=== PATIENT | male | born 1965 | race Caucasian/White ===

== ENCOUNTER 2017-05-07 08:30 | Emergency (ER) | payer OTHER ==
[~2017-05-07] VITALS: Ht 182.9 cm; Wt 117.5 kg
[2017-05-07 08:35] VITALS: Ht 182.9 cm; Wt 117.5 kg
[2017-05-07] MEDS ORDERED: LIDOCAINE 2% VISC 15 ML CUP TOP ONE (09:30)
[2017-05-07] MEDS ORDERED: CEPH-443 PO (09:54)
[2017-05-07] MEDS ORDERED: HYDR-906 PO (09:54)
[2017-05-07] MEDS ORDERED: CEFTRIAXONE 1 GM INJ IM ONE (10:00)
--- NOTE | 2017-05-07 12:06 | ERD ---
ER Documentation Chief Complaint Date/Time DATE: 05/07/17 TIME: 11:54 Chief Complaint Complains of dental pain sent from for eval HPI 48-year-old male with dental pain is sent here by his dentist for abscess drainage. Patient stated that he had been okay for the past 7 days, was given clindamycin by the dentist, he is on day 7 clindamycin. Patient reports dental pain getting worse the last 2 3 days. She was given Tylenol with codeine by his dentist, he only took 1 dose. He stopped because he did not like how it makes him feel. He is taking naproxen and tramadol for his arthritis, but states that had not helped with that he is dental pain. Denies fever or chills. Denies headache or neck pain. ROS All systems reviewed and are negative except as per history of present illness. Medications Home Meds Active Scripts Cephalexin* (Keflex*) 500 Mg Capsule, 500 MG PO QID for 7 Days, CAP Prov:KALEIGH DOE. BUCKLE COVERER 05/07/17 Hydrocodone/Acetaminophen ([place] 5-325 Tablet) 1 Each Tablet, 1 TAB PO Q6H Y for SEVERE PAIN LEVEL 7-10, #7 TAB Prov:KALEIGH DOE. BUCKLE COVERER 05/07/17 Allergies Allergies: Coded Allergies: Penicillins (Verified Allergy, Intermediate, 05/07/17) PMhx/Soc Medical and Surgical Hx: pt denies Medical Hx, pt denies Surgical Hx Physical Exam Vitals Vital Signs Date Time Temp Pulse Resp B/P Pulse Ox O2 Delivery O2 Flow Rate FiO2 05/07/17 08:35 97.7 80 20 134/94 98 Physical Exam General: Well-developed, well-nourished, conscious and coherent, in no distress Skin: Warm and dry without rash, good texture and turgor Head: Normocephalic without evidence of trauma Eyes: Sclera and conjunctivae normal; pupils equal, round, and reactive to light; extraocular movements are intact Nose/Face: To 3 cm sized induration noted on the right face, without fluctuance. Mouth/throat: Mucous membranes are moist. Posterior pharynx clear without erythema or exudates. Few teeth remaining, tenderness and slight fluctuance noted at the gumline lateral to the right upper incisor. Neck: Supple without meningismus or adenopathy. Carotids are equal. Trachea midline. No bruits or JVD Chest: Normal AP diameter. Good expansion without retractions. Nontender. Lungs are clear to auscultate bilaterally with good tidal volume Heart: Regular rate and rhythm. No murmur, rub, or gallops heard Extremities: Full range of motion. Good strength bilaterally. No clubbing, cyanosis, or edema. Peripheral pulses are intact. Sensation intact Neuro: Alert and oriented 4, GCS 15. Cranial nerves grossly intact. Motor and sensory exams nonfocal. Moves all extremities. Speech clear. Gait normal Results 24 hrs Current Medications Medications (Trade) Dose Ordered Sig/Paul Route PRN Reason Start Time Stop Time Status Last Admin Dose Admin Lidocaine (Xylocaine (Viscous)) 15 ml ONCE ONCE TOP 05/07/17 09:30 05/07/17 09:31 DC Ceftriaxone Sodium (Rocephin) 1 gm ONCE ONCE IM 05/07/17 10:00 05/07/17 10:01 DC 05/07/17 10:24 Procedures/MDM Procedure note: Incision and Drainage Verbal consent obtained for incision and drainage of patient's abscess. Viscous lidocaine applied topically on patient's oral mucosa.. After appropriate anesthesia, incision was made using 18-gauge needle. No purulent discharge was drained. Patient appears to have dental abscess with facial cellulitis. He has failed oral clindamycin. Patient stated that he had good luck with Keflex in the past. Rocephin 1 g IM given to the patient in the ED. Patient given prescription of Keflex for home, and advised to apply hot compresses. Patient advised to return to eating 2 days for recheck. I doubt sepsis, Ricardo's angina, sinusitis. Departure Diagnosis: Primary Impression: Dental abscess Condition: Stable Patient Instructions: Dental Abscess W/ Facial Cellulitis Referrals: COMMUNITY CLINICS YOU HAVE RECEIVED A MEDICAL SCREENING EXAM AND THE RESULTS INDICATE THAT YOU DO NOT HAVE A CONDITION THAT REQUIRES URGENT TREATMENT IN THE EMERGENCY DEPARTMENT. FURTHER EVALUATION AND TREATMENT OF YOUR CONDITION CAN WAIT UNTIL YOU ARE SEEN IN YOUR DOCTORS OFFICE WITHIN THE NEXT 1-2 DAYS. IT IS YOUR RESPONSIBILITY TO MAKE AN APPOINTMENT FOR FOLOW-UP CARE. IF YOU HAVE A PRIMARY DOCTOR --you should call your primary doctor and schedule an appointment IF YOU DO NOT HAVE A PRIMARY DOCTOR YOU CAN CALL OUR PHYSICIAN REFERRAL HOTLINE AT IF YOU CAN NOT AFFORD TO SEE A PHYSICIAN YOU CAN CHOSE FROM THE FOLLOWING [facility] [address] [facility] [address] [facility] [facility] [address] [facility] [address] [facility] [address] [facility] [address] [facility] [facility] ([facility] walk in clinic) Additional Instructions: Return to this facility in 2 DAYS for a follow-up exam.Return sooner if your condition worsens. Follow up with your dentist. KALEIGH DOE NP May 07, 2017 12:05
== END 2017-05-07 10:26 | disposition home or self-care (01) ==
LOC: FTE 08:30
DX: K04.7 Periapical abscess without sinus (principal); R40.2412 Glasgow coma scale score 13-15, at arrival to emergency department
CPT/HCPCS: 41800; J0696; Z7610; 96372

== ENCOUNTER 2017-05-09 07:49 | Emergency (ER) | payer OTHER ==
[~2017-05-09] VITALS: Ht 182.9 cm; Wt 117.5 kg
[~2017-05-09 07:49] MED LIST: CEPH-443 PO; HYDR-906 PO
[2017-05-09 07:50] VITALS: Ht 182.9 cm; Wt 117.5 kg
--- NOTE | 2017-05-09 08:28 | ERD ---
ER Documentation Chief Complaint Date/Time DATE: 05/09/17 TIME: 08:27 Chief Complaint recheck - dental pain HPI This 51-year-old male presents for recheck on a right dental abscess. He was seen here 2 days ago. An attempted incision and drainage was performed without much appreciable pus. He is taking Keflex and received an injection of Rocephin. He states that his pain and swelling is significant improved without fevers with no complaints of shortness of breath or difficulty swallowing. ROS All systems reviewed and are negative except as per history of present illness. Medications Home Meds Active Scripts Cephalexin* (Keflex*) 500 Mg Capsule, 500 MG PO QID for 7 Days, CAP Prov:KALEIGH DOE. ASSET CARD CLERK 05/07/17 Hydrocodone/Acetaminophen ([place] 5-325 Tablet) 1 Each Tablet, 1 TAB PO Q6H Y for SEVERE PAIN LEVEL 7-10, #7 TAB Prov:KALEIGH DOE. ASSET CARD CLERK 05/07/17 Allergies Allergies: Coded Allergies: Penicillins (Verified Allergy, Intermediate, 05/09/17) PMhx/Soc Medical and Surgical Hx: pt denies Medical Hx Hx Alcohol Use: No Hx Substance Use: No Hx Tobacco Use: No Physical Exam Vitals Vital Signs Date Time Temp Pulse Resp B/P Pulse Ox O2 Delivery O2 Flow Rate FiO2 05/09/17 07:50 98.9 84 19 132/84 97 Physical Exam Const: [] Alert, [id number], speak in complete sentences. Head: Atraumatic Eyes: Normal Conjunctiva ENT: Normal External Ears, Nose and Mouth.. Poor dentition. There is some minimal induration without erythema warmth or appreciable fluctuance in the right upper canine area and base of the gums. There is no appreciable abscess to be drained. There is no facial erythema or warmth. Airway is patent. Neck: Full range of motion..~ No meningismus. Resp: Clear to auscultation bilaterally Cardio: Regular rate and rhythm, no murmurs Abd: Soft, non tender, non distended. Normal bowel sounds Skin: No petechiae or rashes Back: No midline or flank tenderness Ext: No cyanosis, or edema Neur: Awake and alert Psych: Normal Mood and Affect Procedures/MDM Patient presents with a history of right upper dental abscess which is clinically improving. There is no current abscess to be drained appreciated. Patient was discharged home instructions to continue Keflex and dental follow- up. The patient was stable with no new complaints during the ER course. Clinically, there is no current evidence to suggest meningitis, sepsis, acute abdomen, pneumonia, acute coronary syndrome, pulmonary embolism, or any other emergent condition appearing to require further evaluation or hospitalization. The patient should certainly return for any new or worsening symptoms per the aftercare instructions. They should otherwise follow-up with her primary care doctor for reevaluation this week. Departure Diagnosis: Primary Impression: Dental abscess Condition: Stable Patient Instructions: Dental Abscess Additional Instructions: Abscess appears to be healing appropriately. See dentist for follow-up. Return otherwise for worsening swelling, fevers, new symptoms. ASHWINI SAGASTUME MD May 09, 2017 08:28
== END 2017-05-09 08:29 | disposition home or self-care (01) ==
LOC: FTE 07:49
DX: K04.7 Periapical abscess without sinus (principal)
CPT/HCPCS: 99282

== ENCOUNTER 2017-05-21 20:21 | Inpatient (IN) | payer OTHER ==
[~2017-05-21] VITALS: Ht 185.4 cm; Wt 116.5 kg
[2017-05-21] MEDS ORDERED: ALBUTEROL 0.083% (NEB) 2.5 MG/3 ML AMP HHN STA (21:28)
[2017-05-21] MEDS ORDERED: HYDROCODONE/APAP (5/325) TAB PO ONE (21:30)
[2017-05-21] MEDS ORDERED: IPRATROPIUM (NEB) 0.5 MG/2.5 ML AMP HHN ONE (21:30)
--- NOTE | 2017-05-21 22:06 | RADRPT ---
PROCEDURE: XR Chest. CLINICAL INDICATION: Shortness of breath. TECHNIQUE: Single frontal view. COMPARISON: None. FINDINGS: There is air space disease in the left mid and lower lung zones consistent with pneumonia. The lung s are otherwise clear. The heart size is normal. There is no pleural effusion. There is no pneumothorax. IMPRESSION: 1. Left mid and lower lung zone pneumonia. 2. Otherwise normal chest x-ray. RPTAT: QQ .Oscar Nelson MD, MD Date Time Electronically viewed and signed by .Oscar Nelson MD, MD on 05/21/2017 22:06 .R/
[2017-05-21] MEDS ORDERED: CEFTRIAXONE 2 GM/50 ML (PMX) 50 ML IVPB ONE (22:30)
--- NOTE | 2017-05-21 22:51 | ERA ---
ER Documentation Chief Complaint Date/Time DATE: 05/21/17 TIME: 22:50 Chief Complaint cough HPI The patient is a 51-year-old male, presenting to the ER because of acute shortness of breath, dizziness, cough, pleuritic chest pain, dyspnea after he had right eye cataract surgery about 10 AM today. He was well prior to surgery. He complains of vague abdominal discomfort, denies nausea, vomiting, dysuria, diarrhea, constipation. He does not smoke nor drink Past medical history: Gastritis, osteoarthritis Past surgical history: Right shoulder and right elbow surgery ROS All systems reviewed and are negative except as per history of present illness. Medications Home Meds Active Scripts Cephalexin* (Keflex*) 500 Mg Capsule, 500 MG PO QID for 7 Days, CAP Prov:KALEIGH DOE. ICU REGISTERED NURSE 05/07/17 Hydrocodone/Acetaminophen ([place] 5-325 Tablet) 1 Each Tablet, 1 TAB PO Q6H Y for SEVERE PAIN LEVEL 7-10, #7 TAB Prov:KALEIGH DOE. ICU REGISTERED NURSE 05/07/17 Allergies Allergies: Coded Allergies: Penicillins (Verified Allergy, Intermediate, 05/09/17) PMhx/Soc History of Surgery: Yes (eye sx) Hx Miscellaneous Medical Probl: Yes (arthritis) Hx Alcohol Use: No Hx Substance Use: No Hx Tobacco Use: No Physical Exam Vitals Vital Signs Date Time Temp Pulse Resp B/P Pulse Ox O2 Delivery O2 Flow Rate FiO2 05/22/17 03:33 76 16 120/70 96 Room Air 05/21/17 22:11 79 20 92 21 05/21/17 20:34 99.4 93 18 128/76 91 Physical Exam Const: No acute distress. Head: Atraumatic. Eyes: Normal Conjunctiva. Right eye is covered with dressing ENT: Normal External Ears, Nose and Mouth. Neck: Full range of motion. No meningismus. Resp: Mild bilateral expiratory wheezes Cardio: Regular rate and rhythm. Abd: Soft, non distended, normal bowel sounds, non tender. Skin: No petechiae or rashes. Back: No midline or flank tenderness. Ext: No cyanosis, or edema. Neur: Awake and alert. No focal deficit Psych: Normal Mood and Affect. Result Diagram: 05/21/17 3005 05/21/17 2330 Results 24 hrs Laboratory Tests Test 05/21/17 23:30 White Blood Count 15.510^3/ul Red Blood Count 4.6710^6/ul Hemoglobin 13.7g/dl Hematocrit 41.6% Mean Corpuscular Volume 89.1fl Mean Corpuscular Hemoglobin 29.3pg Mean Corpuscular Hemoglobin Concent 32.9g/dl Red Cell Distribution Width 13.2% Platelet Count 22456^3/UL Mean Platelet Volume 11.2fl Neutrophils % 84.5% Lymphocytes % 9.8% Monocytes % 4.7% Eosinophils % 0.2% Basophils % 0.3% Nucleated Red Blood Cells % 0.0/100WBC Neutrophils # 13.110^3/ul Lymphocytes # 1.510^3/ul Monocytes # 0.710^3/ul Eosinophils # 0.010^3/ul Basophils # 0.110^3/ul Nucleated Red Blood Cells # 0.010^3/ul Prothrombin Time 13.2Sec Prothrombin Time Ratio 1.0 INR International Normalized Ratio 1.00 Activated Partial Thromboplast Time 20.0Sec Sodium Level 134mmol/L Potassium Level 3.5mmol/L Chloride Level 100mmol/L Carbon Dioxide Level 29mmol/L Anion Gap 9 Blood Urea Nitrogen 13mg/dl Creatinine 0.95mg/dl Glucose Level 117mg/dl Lactic Acid Level 1.5mmol/L Calcium Level 9.1mg/dl Total Bilirubin 0.6mg/dl Direct Bilirubin 0.00mg/dl Indirect Bilirubin 0.6mg/dl Aspartate Amino Transf (AST/SGOT) 25IU/L Alanine Aminotransferase (ALT/SGPT) 25IU/L Alkaline Phosphatase 105IU/L Troponin I < 0.012ng/ml Total Protein 7.5g/dl Albumin 4.2g/dl Globulin 3.30g/dl Albumin/Globulin Ratio 1.27 Lipase 61U/L Current Medications Medications (Trade) Dose Ordered Sig/Paul Route PRN Reason Start Time Stop Time Status Last Admin Dose Admin Acetaminophen/ Hydrocodone Bitart ([place]oster (5/325)) 1 tab ONCE ONCE PO 05/21/17 21:30 05/21/17 21:31 DC 05/21/17 21:48 Albuterol (Proventil 0.083% (Neb)) 2.5 mg ONCE STAT HHN 05/21/17 21:28 05/21/17 21:31 DC 05/21/17 22:09 Ipratropium [place] 0.5 mg 0.5 mg ONCE ONCE HHN 05/21/17 21:30 05/21/17 21:31 DC 05/21/17 22:09 Ceftriaxone Sodium 50 ml @ 100 mls/hr ONCE ONCE IVPB 05/21/17 22:30 05/21/17 22:59 DC 05/22/17 00:55 Azithromycin 250 ml @ 250 mls/hr ONCE ONCE IVPB 05/21/17 23:00 05/21/17 23:59 DC 05/21/17 23:30 Sodium Chloride (NS) 100 ml @ ud STK-MED ONCE .ROUTE 05/22/17 00:52 05/22/17 00:53 DC 05/22/17 01:14 Iohexol (Omnipaque 300mg/ ml) 150 ml STK-MED ONCE .ROUTE 05/22/17 00:52 05/22/17 00:53 DC 05/22/17 01:13 IV Flush (NS 3 ml) 3 ml PER PROTOCOL IV 05/22/17 03:30 Ondansetron HCl (Zofran Inj) 4 mg Q6H PRN IV NAUSEA AND/OR VOMITING 05/22/17 03:30 Acetaminophen (Tylenol Tab) 650 mg Q6H PRN PO PAIN LEVEL 1-3 OR FEVER 05/22/17 03:30 Docusate Sodium (Colace) 100 mg Q12H PRN PO CONSTIPATION 05/22/17 03:30 Bisacodyl (Dulcolax) 5 mg DAILY PRN PO CONSTIPATION 05/22/17 03:30 Pantoprazole 40 mg 40 mg DAILY@06 IV 05/22/17 06:00 Levofloxacin/ Dextrose (Levaquin 750 Mg/ D5W 150 ml (Pmx)) 150 ml @ 100 mls/hr Q24H IVPB 05/22/17 03:30 05/22/17 04:05 Procedures/MDM EKG: Read by emergency physician Rate/Rhythm: Normal Sinus Rhythm 67 beats/min QRS, ST, T-waves: No ST elevation, no T inversion, sinus arrhythmia Impression: Abnormal EKG Urinalysis pending [address] [address] Radiology Main Line: [phone] DIAGNOSTIC IMAGING REPORT Patient: CLOVIS MAYBERRY DOB: 1965 Age: 51 Sex: M MR #: [id number] DOS: 05/21/17 0000 Ordering MD: ASHWINI SAGASTUME MD Location: [facility] Room/Bed: PROCEDURE: XR Chest. CLINICAL INDICATION: Shortness of breath. TECHNIQUE: Single frontal view. COMPARISON: None. FINDINGS: There is air space disease in the left mid and lower lung zones consistent with pneumonia. The lungs are otherwise clear. The heart size is normal. There is no pleural effusion. There is no pneumothorax. IMPRESSION: 1. Left mid and lower lung zone pneumonia. 2. Otherwise normal chest x-ray. RPTAT: QQ .Ashwini Nelson MD, Date Time Electronically viewed and signed by .Ashwini Nelson MD, MD on 05/21/2017 22:06 .R/ CC: ASHWINI SAGASTUME MD [place] [address] Radiology Main Line: [phone] DIAGNOSTIC IMAGING REPORT Patient: CLOVIS MAYBERRY : 1965 Age: 51 Sex: M MR #: [id number] DOS: 05/21/17 2226 Ordering MD: ASHWINI SAGASTUME MD Location: [facility] Room/Bed: PROCEDURE: CT angiogram chest. CLINICAL INDICATION: Shortness of breath. TECHNIQUE: CT angiogram of the chest was performed utilizing axial images with reconstructions in sagittal and coronal planes following the intravenous administration of 100 cc Omnipaque 350 contrast. The administered radiation dose is CTDI 20 mGy, DLP 903 mGy-cm. COMPARISON: No pertinent prior examinations are submitted for comparison. FINDINGS: Pulmonary angiogram: The pulmonary arteries are adequately opacified to the level of the segmental pulmonary artery branches. There is minimal respiratory motion artifact. There is no evidence of pulmonary embolus. Aortogram: There is no evidence of aortic dissection or aneurysm. Major branches of the aorta are patent. Variant origin of the right subclavian artery with a maximal esophageal course is noted. Chest: There is patchy airspace opacity throughout the left lung most prominently seen in the left lower lobe but also in the perihilar left upper lobe and lingula. There is mild atelectasis at the right lung base. The fold. No pleural effusions are seen. The tracheobronchial tree is unremarkable. The heart is mildly enlarged. No pericardial effusion is seen. There is no evidence of mediastinal or hilar adenopathy. Moderate bilateral gynecomastia is noted. Visualized Upper abdomen: Unremarkable. Osseous structures: There is anterior wedging of the T5 vertebral body without evidence of acute fracture. A chronic manubrium fracture is noted. IMPRESSION: Patchy left lung air space opacities which may be due to pneumonia or atelectasis. Compression fracture of T5 which is likely chronic. RPTAT: HIKT .Daniel Blanton MD, MD Date Time Electronically viewed and signed by .Daniel Blanton MD, on 05/22/2017 01:50 .T/ CC: ASHWINI SAGASTUME MD MEDICAL MAKING DECISION: The patient is a 51-year-old male, presenting with acute pneumonia. He was treated with [place] 5 mg p.o. for pain, albuterol 2.5 mg and Atrovent 0.5 mg nebulizer for wheezing, Rocephin 1 g IV, Zithromax 500 mg IV for acute pneumonia with good response The differential diagnoses considered include but are not limited to asthma, COPD, pneumonia, pulmonary embolus, pleural effusion, congestive heart failure. Departure Diagnosis: Primary Impression: Pneumonia Additional Impression: Anemia Condition: Stable Comments I discussed the findings with the patient. I discussed the patient with the on- call hospitalist Dr. Miller at 2:45 AM who was made aware of the lab, the treatment, the patient condition. The patient is admitted to JOEY GILBERT MD May 21, 2017 22:51
[2017-05-21] MEDS ORDERED: AZITHROMYCIN 500MG/NS (PMX) 250 ML IVPB ONE (23:00)
[2017-05-22 00:16] LABS: ADD SCAN DIFF NO
[2017-05-22 00:22] LABS: BASOPHIL # 0.1 10^3/ul (0.0-0.1); BASOPHILS % 0.3 % (0.0-2.0); EOSINOPHILS % 0.2 % (0.0-7.0); HEMATOCRIT 41.6 % (42.0-52.0); HEMOGLOBIN 13.7 g/dl (14.0-18.0); LYMPHOCYTES # 1.5 10^3/ul (0.8-2.9); LYMPHOCYTES % 9.8 % (15.0-51.0); MEAN CORPUSCULAR HEMOGLOBIN 29.3 pg (29.0-33.0); MEAN CORPUSCULAR HGB CONC 32.9 g/dl (32.0-37.0); MEAN CORPUSCULAR VOLUME 89.1 fl (82.0-101.0); MEAN PLATELET VOLUME 11.2 fl (7.4-10.4); MONOCYTE # 0.7 10^3/ul (0.3-0.9); MONOCYTES % 4.7 % (0.0-11.0); NEUTROPHIL # 13.1 10^3/ul (1.6-7.5); NEUTROPHILS % 84.5 % (39.0-77.0); PLATELET COUNT 231 10^3/UL (140-415); RED BLOOD COUNT 4.67 10^6/ul (4.70-6.10); RED CELL DISTRIBUTION WIDTH 13.2 % (11.5-14.5); WHITE BLOOD COUNT 15.5 10^3/ul (4.8-10.8)
[2017-05-22 00:40] LABS: PROTIME 13.2 Sec (12.2-14.2)
[2017-05-22 00:42] LABS: ALBUMIN 4.2 g/dl (3.3-4.9); ALBUMIN/GLOBULIN RATIO 1.27; BILIRUBIN,INDIRECT 0.6 mg/dl (0-1.1); BILIRUBIN,TOTAL 0.6 mg/dl (0.2-1.3); CALCIUM 9.1 mg/dl (8.4-10.2); CREATININE 0.95 mg/dl (0.61-1.24); POTASSIUM 3.5 mmol/L (3.5-5.1); TOTAL PROTEIN 7.5 g/dl (6.1-8.1)
[2017-05-22] MEDS ORDERED: IOHEXOL 300MG/ML 150 ML BTL ONE (00:52)
[2017-05-22] MEDS ORDERED: SOD CHLORIDE 0.9% 100 ML ONE (00:52)
--- NOTE | 2017-05-22 01:51 | RADRPT ---
PROCEDURE: CT angiogram chest. CLINICAL INDICATION: Shortness of breath. TECHNIQUE: CT angiogram of the chest was performed utilizing axial images with reconstructions in sagittal and coronal planes following the intravenous administration of 100 cc Omnipaque 350 contras t. The administered radiation dose is CTDI 20 mGy, DLP 903 mGy-cm. COMPARISON: No pertinent prior examinations are submitted for comparison. FINDINGS: Pulmonary angiogram: The pulmonary arteries are adequately opacified to the level of the segmental pulmonary artery branches. There is minimal respiratory motion artifact. There is no evidence of p ulmonary embolus. Aortogram: There is no evidence of aortic dissection or aneurysm. Major branches of the aorta are patent. Variant origin of the right subclavian artery with a maximal esophageal course is noted. Chest: There is patchy airspace opacity throughout the left lung most prominently seen in the left lower lo be but also in the perihilar left upper lobe and lingula. There is mild atelectasis at the right alexis g base. The fold. No pleural effusions are seen. The tracheobronchial tree is unremarkable. The heart is mildly enlarged. No pericardial effusion is seen. There is no evidence of mediastinal or hilar adenopathy. Moderate bilateral gynecomastia is noted. Visualized Upper abdomen: Unremarkable. Osseous structures: There is anterior wedging of the T5 vertebral body without evidence of acute fra cture. A chronic manubrium fracture is noted. IMPRESSION: Patchy left lung air space opacities which may be due to pneumonia or atelectasis. Compression fracture of T5 which is likely chronic. RPTAT: HIKT .Daniel Blanton MD, Date Time Electronically viewed and signed by .Daniel Blanton MD, on 05/22/2017 01:50 .T/
--- NOTE | 2017-05-22 03:20 | HP ---
Date/Time of Note Date/Time of Note DATE: 05/22/17 TIME: 03:19 Assessment/Plan VTE Prophylaxis VTE Prophylaxis Intervention: SCD's Lines/Catheters IV Catheter Type (from [facility]): Saline Lock Assessment/Plan Chief Complaint/Hosp Course This is a 51-year-old male being admitted to the [facility] floor for: #1 community acquired pneumonia: At the current time we will treat patient with Levaquin 750 mg IV every 24 hours. Monitor patient's O2 saturation. He was requesting possible change in antibiotics however there are some limitations to his PCN allergy which he understands. #2: Arthritis: Stable. NSAIDs as needed. #3 hyperactivity disorder: Patient states at the current time he is not on any medications he has tried Ritalin in the past. And to treat his disorder at times he takes methamphetamines. Will get a urine drug screen #4 DVT and GI prophylaxis: SCDs, Protonix Problems: HPI/ROS Admit Date/Time Admit Date/Time Hx of Present Illness Chief complaint: Shortness of breath and dizziness and cough The patient is a 51-year-old male, presenting to the ER because of acute shortness of breath, dizziness, cough, pleuritic chest pain, dyspnea after he had right eye cataract surgery about 10 AM today. He was well prior to surgery. He complains of vague abdominal discomfort, denies nausea, vomiting, dysuria, diarrhea, constipation. He stated that when he went home he just did not feel well and he ended up sleeping for 3 hours and then after waking up he continues not feel well and so he came to the ER. Currently he denies any sort of chest pain or pleuritic pleuritic pain. Allergies: Penicillins Medications: See [facility] MENDO[facility] Const: As per HPI Eyes : No pain discharge or redness or change in visual acuity ENT: No pain, sore throat, congestion, congestion, dysphagia or discharge Respiratory: As per HPI Cardiovascular: No chest pain, palpitation, PND, or edema GI : As per HPI Genitourinary: No dysuria, hematuria, flank pain , discharge or CVA tenderness Musculoskeletal: No joint pain, back pain, neck pain, restricted range of motion in neck or joints Skin: No rash, bruising or hives Neuro: No headache, dizziness, syncope, seizure, focal weakness Endocrine: No polyuria, polydipsia, temperature intolerance Psych: No hallucination, depression, anxiety or suicidal ideation PMH/Family/Social Past Medical History Gastritis, osteoarthritis Past Surgical History Right shoulder and right elbow surgery, right cataract surgery Family History Significant Family History: other (Aneurysm of the brain) Social History Alcohol Use: none Smoking Status: Unknown if ever smoked Drug Use: other (History of methamphetamine use) Exam/Review of Systems Vital Signs Vitals Vital Signs Date Time Temp Pulse Resp B/P Pulse Ox O2 Delivery O2 Flow Rate FiO2 05/21/17 22:11 79 20 92 21 05/21/17 20:34 99.4 128/76 Exam Exam General: Patient is well-developed well-nourished The patient is alert oriented -3 lying comfortably in bed. HEENT: Atraumatic, normocephalic. The pupils are equal, round and reactive. Extraocular motor are intact Neck: Supple with full range of motion. No rigidity or meningismus Chest: Nontender Lungs: Coarse breath sounds at the left lung bethea mild crackles, no rales, right-sided lung field clear to auscultation Heart: Normal S1-S2, Regular rhythm and rate. No murmur, S3, or S4 Abdomen: Soft , nontender, nondistended , bowel sounds are present. No guarding no rebound tenderness , No masses or organomegaly. No costovertebral temporal angle mass Extremities: Normal to inspection, no edema no cyanosis Neurologic: Normal mental status, speech normal, cranial nerves II through XII are intact, motor and sensory are intact, no focal weakness Additional Comments PROCEDURE: CT angiogram chest. CLINICAL INDICATION: Shortness of breath. TECHNIQUE: CT angiogram of the chest was performed utilizing axial images with reconstructions in sagittal and coronal planes following the intravenous administration of 100 cc Omnipaque 350 contrast. The administered radiation dose is CTDI 20 mGy, DLP 903 mGy-cm. COMPARISON: No pertinent prior examinations are submitted for comparison. FINDINGS: Pulmonary angiogram: The pulmonary arteries are adequately opacified to the level of the segmental pulmonary artery branches. There is minimal respiratory motion artifact. There is no evidence of pulmonary embolus. Aortogram: There is no evidence of aortic dissection or aneurysm. Major branches of the aorta are patent. Variant origin of the right subclavian artery with a maximal esophageal course is noted. Chest: There is patchy airspace opacity throughout the left lung most prominently seen in the left lower lobe but also in the perihilar left upper lobe and lingula. There is mild atelectasis at the right lung base. The fold. No pleural effusions are seen. The tracheobronchial tree is unremarkable. The heart is mildly enlarged. No pericardial effusion is seen. There is no evidence of mediastinal or hilar adenopathy. Moderate bilateral gynecomastia is noted. Visualized Upper abdomen: Unremarkable. Osseous structures: There is anterior wedging of the T5 vertebral body without evidence of acute fracture. A chronic manubrium fracture is noted. IMPRESSION: Patchy left lung air space opacities which may be due to pneumonia or atelectasis. Compression fracture of T5 which is likely chronic. RPTAT: HIKT .Daniel Blanton MD, Date Time Electronically viewed and signed by .Daniel Blanton MD, on 05/22/2017 01:50 PROCEDURE: XR Chest. CLINICAL INDICATION: Shortness of breath. TECHNIQUE: Single frontal view. COMPARISON: None. FINDINGS: There is air space disease in the left mid and lower lung zones consistent with pneumonia. The lungs are otherwise clear. The heart size is normal. There is no pleural effusion. There is no pneumothorax. IMPRESSION: 1. Left mid and lower lung zone pneumonia. 2. Otherwise normal chest x-ray. RPTAT: QQ .Oscar Nelson MD, Date Time Electronically viewed and signed by .Oscar Nelson MD, on 05/21/2017 22:06 Labs Result Diagram: 05/21/17 2330 05/21/17 2330 MELISSA JIMENEZ May 22, 2017 03:20 MELISSA JIMENEZ May 22, 2017 03:20
[2017-05-22] MEDS ORDERED: NACL 0.9% 3 ML SYG IV SCH (03:30)
[2017-05-22] MEDS ORDERED: BISACODYL (EC) 5 MG TAB PO PRN (03:30)
[2017-05-22] MEDS ORDERED: DOCUSATE SODIUM 100 MG CAP PO PRN (03:30)
[2017-05-22] MEDS ORDERED: ACETAMINOPHEN 325 MG TAB PO PRN (03:30)
[2017-05-22] MEDS ORDERED: LEVOFLOXACIN 750MG/D5W (PMX) 150 ML IVPB SCH (03:30)
[2017-05-22] MEDS ORDERED: ONDANSETRON 4 MG INJ IV PRN (03:30)
[2017-05-22 06:00] VITALS: BP 126/76; PULSE 75; RESP 17; Ht 185.4 cm; Wt 116.5 kg
[2017-05-22] MEDS ORDERED: PANTOPRAZOLE 40 MG INJ IV SCH (06:00)
[2017-05-22 08:15] VITALS: BP 123/73; RESP 16
[2017-05-22] MEDS ORDERED: LEVO750T8 PO (11:09)
--- NOTE | 2017-05-22 11:11 | DS ---
Date/Time of Note Date/Time of Note DATE: 05/22/17 TIME: 11:11 Discharge Summary Admission/Discharge Info Admit Date/Time May 22, 2017 at 02:48 Discharge Date/Time Patient Condition: Good Procedures CXR 7.14 +L sided pulm infiltrate Hx of Present Illness Chief complaint: Shortness of breath and dizziness and cough The patient is a 51-year-old male, presenting to the ER because of acute shortness of breath, dizziness, cough, pleuritic chest pain, dyspnea after he had right eye cataract surgery about 10 AM today. He was well prior to surgery. He complains of vague abdominal discomfort, denies nausea, vomiting, dysuria, diarrhea, constipation. He stated that when he went home he just did not feel well and he ended up sleeping for 3 hours and then after waking up he continues not feel well and so he came to the ER. Currently he denies any sort of chest pain or pleuritic pleuritic pain. Allergies: Penicillins Medications: See [facility] Hospital Course Pt started on abx, symptoms resolved by the morning and he requested to be discharged. 4 additional days of PO abx (high dose levoflox) Home Meds Active Scripts Levofloxacin* (Levofloxacin*) 750 Mg Tablet, 750 MG PO DAILY for 4 Days, TAB Prov:ANTONIO MUHAMMAD MD 05/22/17 Cephalexin* (Keflex*) 500 Mg Capsule, 500 MG PO QID for 7 Days, CAP Prov:KALEIGH DOE MACHINE SETTER 05/07/17 Hydrocodone/Acetaminophen (Scheller 5-325 Tablet) 1 Each Tablet, 1 TAB PO Q6H Y for SEVERE PAIN LEVEL 7-10, #7 TAB Prov:KALEIGH DOE MACHINE SETTER 05/07/17 Primary Care Provider Kiah Enriquez Pending Labs Laboratory Tests Test 05/21/17 23:30 05/22/17 03:30 05/22/17 06:05 White Blood Count 15.510^3/ul (4.8-10.8) Red Blood Count 4.6710^6/ul (4.70-6.10) Hemoglobin 13.7g/dl (14.0-18.0) Hematocrit 41.6% (42.0-52.0) Mean Corpuscular Volume 89.1fl (82.0-101.0) Mean Corpuscular Hemoglobin 29.3pg (29.0-33.0) Mean Corpuscular Hemoglobin Concent 32.9g/dl (32.0-37.0) Red Cell Distribution Width 13.2% (11.5-14.5) Platelet Count 19224^3/UL (140-415) Mean Platelet Volume 11.2fl (7.4-10.4) Neutrophils % 84.5% (39.0-77.0) Lymphocytes % 9.8% (15.0-51.0) Monocytes % 4.7% (0.0-11.0) Eosinophils % 0.2% (0.0-7.0) Basophils % 0.3% (0.0-2.0) Nucleated Red Blood Cells % 0.0/100WBC (0.0-0.0) Neutrophils # 13.110^3/ul (1.6-7.5) Lymphocytes # 1.510^3/ul (0.8-2.9) Monocytes # 0.710^3/ul (0.3-0.9) Eosinophils # 0.010^3/ul (0.0-0.5) Basophils # 0.110^3/ul (0.0-0.1) Nucleated Red Blood Cells # 0.010^3/ul (0.0-0.0) Prothrombin Time 13.2Sec (12.2-14.2) Prothrombin Time Ratio 1.0 INR International Normalized Ratio 1.00 Activated Partial Thromboplast Time 20.0Sec (25.0-35.0) Sodium Level 134mmol/L (135-144) Potassium Level 3.5mmol/L (3.5-5.1) Chloride Level 100mmol/L (97-110) Carbon Dioxide Level 29mmol/L (21-31) Anion Gap 9 (8-16) Blood Urea Nitrogen 13mg/dl (7-20) Creatinine 0.95mg/dl (0.61-1.24) Glucose Level 117mg/dl (70-220) Lactic Acid Level 1.5mmol/L (0.5-2.0) 1.1mmol/L (0.5-2.0) 1.3mmol/L (0.5-2.0) Calcium Level 9.1mg/dl (8.4-10.2) Total Bilirubin 0.6mg/dl (0.2-1.3) Direct Bilirubin 0.00mg/dl (0.00-0.20) Indirect Bilirubin 0.6mg/dl (0-1.1) Aspartate Amino Transf (AST/SGOT) 25IU/L (15-46) Alanine Aminotransferase (ALT/SGPT) 25IU/L (13-69) Alkaline Phosphatase 105IU/L (42-121) Troponin I < 0.012ng/ml (0.00-0.12) Total Protein 7.5g/dl (6.1-8.1) Albumin 4.2g/dl (3.3-4.9) Globulin 3.30g/dl (1.3-3.2) Albumin/Globulin Ratio 1.27 Lipase 61U/L (23-300) ANTONIO MUHAMMAD MD May 22, 2017 11:11 Albumin/Globulin Ratio 1.27 Lipase 61U/L (23-300) ANTONIO MUHAMMAD MD May 22, 2017 11:11
--- NOTE | 2017-05-22 11:11 | PDOCDIS ---
Discharge Instructions CONDITION Patient Condition: Good FOLLOW UP/APPOINTMENTS Follow-up Plan Follow up with your regular doctor within 7 days ANTONIO MUHAMMAD MD May 22, 2017 11:11
== END 2017-05-22 12:32 | disposition home or self-care (01) | DRG 195 ==
LOC: FTE 20:21 → PP2 05-22 02:48
PROVIDERS: ADMIT Family Medicine; ATTEND Family Medicine
DX: J18.9 Pneumonia, unspecified organism (principal); D64.9 Anemia, unspecified; Y95 Nosocomial condition; M19.90 Unspecified osteoarthritis, unspecified site; F90.9 Attention-deficit hyperactivity disorder, unspecified type; Z98.41 Cataract extraction status, right eye
CPT/HCPCS: 36415; 71010; 71275; 80053; 83605; 83690; 84484; 85025; 85610; 85730; 87040; 93005; 94664; 96365; 96375; C9113; J0456; J1956; Q9967

== ENCOUNTER 2017-06-01 01:28 | Emergency (ER) | payer OTHER ==
[~2017-06-01] VITALS: Ht 182.9 cm; Wt 117.5 kg
[~2017-06-01 01:28] MED LIST changes: -CEPH-443 PO; -HYDR-906 PO; +LEVO750T8 PO
[2017-06-01 01:44] VITALS: Ht 182.9 cm; Wt 117.5 kg
--- NOTE | 2017-06-01 04:36 | RADRPT ---
PROCEDURE: ULTRASOUND BILATERAL LOWER EXTREMITY VENOUS CLINICAL INDICATION: 51-year-old male with bilateral lower extremity pain. TECHNIQUE: Multiple sonographic images of the bilateral lower extremity deep venous system was obt ained utilizing grayscale, color-flow, compressive sonography and doppler imaging with augmentation. The images were reviewed on a PACS workstation. COMPARISON: None. FINDINGS: There is normal compressibility and flow within the common femoral, deep femoral, superficial femora l, popliteal, posterior tibial and peroneal veins. IMPRESSION: No sonographic evidence for deep venous thrombosis. .Wyatt Crawford MD, MD Date Time Electronically viewed and signed by .Wyatt Crawford MD, MD on 06/01/2017 04:36 .Tammy/
--- NOTE | 2017-06-01 04:37 | RADRPT ---
PROCEDURE: XR ankle bilateral 3 views each CLINICAL INDICATION: Bilateral ankle injury, pain TECHNIQUE: AP, oblique and lateral views of the bilateral ankles were performed. COMPARISON: None. FINDINGS: On the right, there is diffuse soft tissue swelling. No fracture or dislocation is seen. Small rosey ntar calcaneal spur. On the left there is diffuse soft tissue swelling. No fracture or dislocation is seen. Plantar and posterior calcaneal spurs. IMPRESSION: Bilateral ankle diffuse soft tissue swelling. Please see above. RPTAT: HJES .Trino Riojas MD, MD Date Time Electronically viewed and signed by .Trino Riojas MD, MD on 06/01/2017 04:37 .S/
--- NOTE | 2017-06-01 04:46 | RADRPT ---
PROCEDURE: XR Foot Bilateral. CLINICAL INDICATION: Bilateral feet injury TECHNIQUE: AP, lateral and oblique views of the bilateral feet were obtained. The images were rev iewed on a PACS workstation. COMPARISON: None. FINDINGS: Right foot: There is diffuse soft tissue swelling particularly dorsal soft tissue swelling. The second through fourth toes appear to be held in flexion at distal interphalangeal joints. No acute fracture or dis location is seen. Plantar and posterior calcaneal spurs. Left foot: There is diffuse soft tissue swelling particularly dorsal soft tissue swelling. Suggestion of a non displaced intra-articular fracture of the proximal medial corner of the proximal phalanx of the firs t toe. No dislocation is seen. The second through fourth toes appear to be held in flexion at dist al interphalangeal joints. Plantar and posterior calcaneal spurs. IMPRESSION: Diffuse soft tissue swelling particularly dorsal soft tissue swelling bilaterally. Suggestion of a nondisplaced intra-articular fracture of the proximal medial corner of the proximal phalanx of the f irst toe of the left foot. No acute fracture is seen in the right foot. RPTAT: HJES .Trino Riojas MD, Date Time Electronically viewed and signed by .Trino Riojas MD, on 06/01/2017 04:46 .S/
[2017-06-01] MEDS ORDERED: BACITUD TOP (05:06)
[2017-06-01] MEDS ORDERED: CLIN-73 PO (05:06)
[2017-06-01] MEDS ORDERED: SULF1TAB31 PO (05:06)
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
== END 2017-06-01 05:10 | disposition home or self-care (01) ==
LOC: FTE 01:28
DX: L03.116 Cellulitis of left lower limb (principal); L03.115 Cellulitis of right lower limb; S92 Fracture of foot and toe, except ankle; V29.60XS Unspecified motorcycle rider injured in collision with unspecified motor vehicles in traffic accident, sequela
CPT/HCPCS: 73600; 73630; 93970; Z7502

== ENCOUNTER 2018-10-11 11:57 | Emergency (ER) | END 2018-10-11 20:20 | disposition home or self-care (01) ==